=== PATIENT | female | born 1955 | race Asian ===

== ENCOUNTER 2025-04-15 10:56 | Outpatient (CLI) | payer MEDICARE ==
[2025-04-15 11:41] LABS: Estimated GFR - POC 49.0
== END 2025-04-15 10:57 | disposition home or self-care (01) ==
LOC: CSHMRI 10:56
PROVIDERS: ATTEND Specialist
DX: R59.0 Localized enlarged lymph nodes (principal)
CPT/HCPCS: 36415; 76376; 82565 ×2; C8908